=== PATIENT | female | born 1985 | race Asian ===

== ENCOUNTER 2024-12-01 11:29 | Outpatient (CLI) | payer OTHER, SELFPAY | END 2024-12-01 11:30 | disposition home or self-care (01) | PROVIDERS: PCP Emergency Medicine; Visit Provider Emergency Medicine | DX: N92.6 Irregular menstruation, unspecified (principal); L65.9 Nonscarring hair loss, unspecified | CPT/HCPCS: 80048; 82728; 84443 ==

== ENCOUNTER 2025-03-02 16:48 | Outpatient (CLI) | payer OTHER, SELFPAY ==
--- NOTE | 2025-03-02 16:45 | CRLHL7_ITS ---
For Patients: As a result of the Century Cures Act, medical imaging exams and procedure reports are released immediately into your electronic medical record. You may view this report before your referring provider. If you have questions, please contact your health care provider. CLINICAL HISTORY: Irregular cycles and pain/dysmenorrhea COMPARISON: None. TECHNIQUE: 2D may-scale ultrasound. In addition, color Doppler and spectral Doppler analysis was performed of the pelvis using a transabdominal and transvaginal approach. Transvaginal imaging performed to better visualize the endometrial stripe and ovaries. FINDINGS: The uterus measures 8.7 x 3.1 x 6.1 cm. Right-sided uterine fibroid is present which measures 3.5 x 3.1 x 3.1 cm. The endometrium measures 5.5 millimeters. The right ovary measures 4.1 x 3.5 x 3.8 cm and the left ovary measures 3.4 x 1.6 x 1.6 cm. Simple anechoic right ovarian cysts are present which measure 2.3 x 2.6 x 2.4 cm and 2.2 x 2.1 x 2.3 cm. There is also a hypoechoic nonvascular cyst within the right ovary which measures 1.3 x 1.2 x 1.4 cm compatible with a hemorrhagic cyst. The ovaries demonstrate normal arterial and venous blood flow on color Doppler and spectral Doppler analysis. There are no suspicious fluid collections within the cul-de-sac. IMPRESSION: Right ovarian cysts. No torsion or excess pelvic free fluid. Right-sided uterine fibroid. Dictated by Ottoniel Thurman MD @ 03/03/2025 10:13:24 AM (Electronically Signed)
== END 2025-03-02 16:49 | disposition home or self-care (01) ==
LOC: US 16:49
PROVIDERS: Visit Provider Obstetrics & Gynecology
DX: N94.6 Dysmenorrhea, unspecified (principal); N83.201 Unspecified ovarian cyst, right side; N92.6 Irregular menstruation, unspecified
CPT/HCPCS: 76830; 76856; 93976